=== PATIENT | female | born 1945 | race Caucasian/White ===

== ENCOUNTER → 2016-09-11 | Outpatient (CLI) | payer MEDICARE, OTHER | END | disposition home or self-care (01) | LOC: PCVCCLINIC 13:48 | PROVIDERS: ATTEND Internal Medicine | DX: I25.10 Atherosclerotic heart disease of native coronary artery without angina pectoris (principal); I10 Essential (primary) hypertension; E78.5 Hyperlipidemia, unspecified; Z95.1 Presence of aortocoronary bypass graft | CPT/HCPCS: 80061; 93005; G0463 ==

== ENCOUNTER → 2017-03-05 | Outpatient (CLI) | payer MEDICARE, OTHER | END | disposition home or self-care (01) | LOC: PCVCCLINIC 11:09 | PROVIDERS: ATTEND Internal Medicine | DX: I25.10 Atherosclerotic heart disease of native coronary artery without angina pectoris (principal); I10 Essential (primary) hypertension; I65.23 Occlusion and stenosis of bilateral carotid arteries; E78.5 Hyperlipidemia, unspecified; Z79.899 Other long term (current) drug therapy | CPT/HCPCS: 80061; 93005; G0463 ==

== ENCOUNTER → 2017-09-07 | Outpatient (CLI) | payer MEDICARE, OTHER | END | disposition home or self-care (01) | LOC: PCVCCLINIC 12:04 | DX: I25.10 Atherosclerotic heart disease of native coronary artery without angina pectoris (principal); I10 Essential (primary) hypertension; I65.23 Occlusion and stenosis of bilateral carotid arteries; E78.5 Hyperlipidemia, unspecified; Z79.899 Other long term (current) drug therapy; Z79.82 Long term (current) use of aspirin | CPT/HCPCS: 93005; G0463 ==

== ENCOUNTER → 2018-03-30 | Outpatient (CLI) | payer MEDICARE, OTHER ==
[~2018-03-30] MED LIST: ASPIRIN 325 MG TABLET ONE; HEPARIN for IV BOLUS 10,000 UNIT/10 ML VIAL. ONE; IV NORMAL SALINE 1000ML BAG 1,000 ML ONE
--- NOTE | 2018-03-30 16:04 | PCVCIMAG ---
APPROVED REPORT Study performed: 03/30/2018 10:27:10 Exam: Stress Echocardiogram Indication: CAD s/p CABG,stent Patient Location: Echo lab Stress Nurse: Linda Linares RN Room #: 2 Status: routine Ht: 5 ft 6 in HR: 76 bpm BP: 146/92 mmHg Rhythm: Incomplete RBBB Medical History Medical History: CAD s/p CABG,stent, PAD Cardiac Risk Factors: HTN, Hyperlipidemia Previous Cardiac Procedures: CABG,PCI Exercise History: Physically active Procedure The patient underwent an Exercise Stress Test using the Louis Protocol. Blood pressure, heart rate, and EKG were monitored. An Echocardiogram was performed by commercial tire service technician in four stages in quad fashion. At peak stress, four selected images were obtained and placed side by side with resting images for comparison. Stress Test Details Stress Test: Exercise stress testing was performed using a Louis protocol. HR Resting HR: 76 bpmMax Heart Rate (APMHR): 149 bpm Max HR Achieved: 151 bpmTarget HR (85% APMHR): 126 bpm % of APMHR: 101 Recovery HR: 105 bpm HR response to stress: Normal HR response to stress BP Resting BP: 146/92 mmHg Max BP: 182/86 mmHg Recovery BP: 110/70 mmHg ECG Resting ECG: Incomplete RBBB Stress ECG: Anterolateral injury pattern ST Change: Strongly positive Maximum ST Deviation: 4 mm Arrhythmia: Frequent PVCs,couplets ,short runs PVcs Recovery ECG: Anterolateral W[place] pattern, Anteroseptal [place] pattern Recovery ST Change: Strongly positive Recovery ST Deviation: 4.5 mm Recovery Arrhythmia: Non-sustained ventricular tachycardia, Ventricular fibrillation Clinical Reason for Termination: Maximal effort Stress Symptoms: Leg Fatigue Exercise duration: 8 min 01 sec Highest Stage Achieved: Stage 3: 3.4 mph at 14% grade. Exercise capacity: 10.1 METs Overall Exercise Capacity for Age: Good Scale: Active Angina Score: None Stress ECG Conclusion The patient exercised according to the LOUIS protocol for 8:01 mins; achieving a work level of 10.1 METS. The resting heart rate of 78 bpm varun to a maximum heart rate of 157 bpm. This value represent 105% of the maximal, age-predicted heart rate. The resting blood pressure of 146/92mmHg, varun to a maximum blood pressure of 182/86mmHg. The exercise test was stopped due to fatigue. ST elevation which began as the exercise was stopped continued to progress. Dr San was called to the room. Sublingual nitroglycerin x 2 was given. An IV was started. Abby was called and patient was transported to the hospital. Salcedo Treadmill Score is -12.0 which is High risk. Pre-Stress Echo The resting Echocardiogram showed normal left ventricular contractility with an estimated Ejection Fraction of about 55-60%. Post-Stress Echo The stress Echocardiogram showed abnormal left ventricular contractility with an estimated Ejection Fraction of about 45-50%. The stress Echocardiogram demonstrated wall motion abnormality in the basal anteroseptal, mid-anteroseptal, apical anterior olivarez. Conclusion Clinical Response: Ischemic Exercise Capacity: Average Stress ECG Response: Ischemic Stress Echo Images: Ischemic Positive stress test with acute changes to the EKG and images. Other Information Study Quality: Adequate Critical Notification Physician Notified <Conclusion> Positive stress test with acute changes to the EKG and images.
== END | disposition home or self-care (01) ==
LOC: PCVCIMAG 10:32
PROVIDERS: ATTEND Internal Medicine
DX: I10 Essential (primary) hypertension (principal); I25.10 Atherosclerotic heart disease of native coronary artery without angina pectoris; I65.29 Occlusion and stenosis of unspecified carotid artery; Z95.1 Presence of aortocoronary bypass graft
CPT/HCPCS: 93325; 93351; J1644; J7030

== ENCOUNTER → 2018-04-08 | Outpatient (CLI) | payer MEDICARE, OTHER | END | disposition home or self-care (01) | LOC: PCVCCLINIC 15:07 | PROVIDERS: ATTEND Internal Medicine | DX: I25.10 Atherosclerotic heart disease of native coronary artery without angina pectoris (principal); I25.5 Ischemic cardiomyopathy; I10 Essential (primary) hypertension; I65.23 Occlusion and stenosis of bilateral carotid arteries; E78.5 Hyperlipidemia, unspecified; Z95.1 Presence of aortocoronary bypass graft; Z79.82 Long term (current) use of aspirin | CPT/HCPCS: 93005; G0463 ==

== ENCOUNTER → 2018-05-20 | Outpatient (CLI) | payer MEDICARE, OTHER | END | disposition home or self-care (01) | LOC: PCVCCLINIC 15:25 | PROVIDERS: ATTEND Internal Medicine | DX: I25.10 Atherosclerotic heart disease of native coronary artery without angina pectoris (principal); I10 Essential (primary) hypertension; I25.5 Ischemic cardiomyopathy; I65.23 Occlusion and stenosis of bilateral carotid arteries; E78.5 Hyperlipidemia, unspecified; I25.2 Old myocardial infarction; Z95.1 Presence of aortocoronary bypass graft; Z88.5 Allergy status to narcotic agent; Z88.8 Allergy status to other drugs, medicaments and biological substances; Z88.2 Allergy status to sulfonamides; Z79.82 Long term (current) use of aspirin; Z79.899 Other long term (current) drug therapy; Z90.710 Acquired absence of both cervix and uterus | CPT/HCPCS: 93005; G0463 ==

== ENCOUNTER → 2018-07-22 | Outpatient (CLI) | payer MEDICARE, OTHER ==
--- NOTE | 2018-07-22 14:41 | PCVCIMAG ---
APPROVED REPORT Study performed: 07/22/2018 13:15:44 EXAM: Comprehensive 2D, Doppler, and color-flow Echocardiogram Patient Location: Echo lab Room #: 2Status: routine BSA: 1.80 HR: 70 bpmBP: 140/82 mmHg Rhythm: NSR Other Information Study Quality: Good Risk Factors: Cardiac Risk Factors: Hyperlipidemia, HTN Indications CAD Hypertension/HDD HX CABG, RI 2D Dimensions IVSd: 5.10 (7-11mm)LVOT Diam: 21.78 (18-24mm) LVDd: 46.59 mm PWd: 7.24 (7-11mm)Ascending Ao: 24.53 (22-36mm) LVDs: 27.75 (25-40mm) Left Atrium: 29.07 (27-40mm) Aortic Root: 25.48 mm LV Single Plane 4CH: 51.66 % LV Single Plane 2CH: 61.83 % Biplane EF: 69.0 % Volumes Left Atrial Volume (Systole) Single Plane 4CH: 42.37 mLSingle Plane 2CH: 49.07 mL Biplane LA Volume: 47.00 mLLA ESV Index: 26.00 mL/m2 Aortic Valve AoV Peak Nithin.: 1.05 m/s AO Peak Gr.: 4.86 mmHgLVOT Max P.53 mmHg LVOT Max V: 0.94 m/s NIKKI Vmax: 3.34 cm2 AI Vmax: 1.63 m/s AI [place]: 1.00 m/s2 AI PHT: 473.20 ms Mitral Valve E/A Ratio: 0.6 MV Decel. Time: 167.97 ms MV E Max Nithin.: 0.45 m/s MV A Nithin.: 0.72 m/s IVRT: 110.73 ms Pulmonary Valve PV Peak Nithin.: 0.90 m/sPV Peak Gr.: 3.21 mmHg Tricuspid Valve TR Peak Nithin.: 2.45 m/s TR Peak Gr.: 23.98 mmHg TV Vmax: 0.56 m/sPA Pressure: 30.00 mmHg Left Ventricle The left ventricle is normal size. There is normal LV segmental wall motion. There is normal left ventricular wall thickness. Left ventricular systolic function is normal. The left ventricular ejection fraction is within the normal range. LVEF is 65%. Mild diastolic dysfunction is present (impaired relaxation pattern). Right Ventricle The right ventricle is normal size. The right ventricular systolic function is normal. Atria The left atrium size is normal. The right atrium size is normal. Aortic Valve Aortic valve is trileaflet, mildly sclerotic Mild aortic regurgitation. There is no aortic valvular stenosis. Mitral Valve The mitral valve is normal in structure. Mild mitral regurgitation. No evidence of mitral valve stenosis. Tricuspid Valve The tricuspid valve is normal in structure. Mild to moderate tricuspid regurgitation with a PA pressure of 30. Pulmonic Valve The pulmonary valve is normal in structure. Trace to mild pulmonic regurgitation. Great Vessels The aortic root is normal in size. The ascending aorta is normal in size. Aortic arch is normal in caliber. IVC is normal in size and collapses >50% with inspiration. Pericardium There is no pericardial effusion. There is no pleural effusion. <Conclusion> Left ventricular systolic function is normal. There is normal LV segmental wall motion. LVEF is 65%. Mild diastolic dysfunction Aortic valve is trileaflet, mildly sclerotic. Mild aortic regurgitation. The mitral valve is normal in structure. Mild mitral regurgitation. Mild to moderate tricuspid regurgitation with a pulmonary artery pressure of 30mmHg. There is no pericardial effusion.
== END | disposition home or self-care (01) ==
LOC: PCVCIMAG 13:23
PROVIDERS: ATTEND Internal Medicine
DX: I08.3 Combined rheumatic disorders of mitral, aortic and tricuspid valves (principal); I25.10 Atherosclerotic heart disease of native coronary artery without angina pectoris; I10 Essential (primary) hypertension; E78.5 Hyperlipidemia, unspecified; Z95.1 Presence of aortocoronary bypass graft; Z79.82 Long term (current) use of aspirin
CPT/HCPCS: 36415; 80061; 93306; G0463

== ENCOUNTER → 2018-11-03 | Outpatient (CLI) | payer MEDICARE, OTHER | END | disposition home or self-care (01) | LOC: PCVCCLINIC 13:20 | PROVIDERS: ATTEND Internal Medicine | DX: I25.10 Atherosclerotic heart disease of native coronary artery without angina pectoris (principal); E78.2 Mixed hyperlipidemia; I10 Essential (primary) hypertension; Z95.1 Presence of aortocoronary bypass graft; Z88.6 Allergy status to analgesic agent; Z88.3 Allergy status to other anti-infective agents; Z88.2 Allergy status to sulfonamides; Z91.041 Radiographic dye allergy status | CPT/HCPCS: 93005; G0463 ==

== ENCOUNTER → 2019-01-24 | Outpatient (CLI) | payer MEDICARE, OTHER | END | disposition home or self-care (01) | LOC: PCVCCLINIC 15:22 | PROVIDERS: ATTEND Internal Medicine | DX: I25.10 Atherosclerotic heart disease of native coronary artery without angina pectoris (principal); E78.5 Hyperlipidemia, unspecified; I10 Essential (primary) hypertension; Z95.1 Presence of aortocoronary bypass graft; Z79.82 Long term (current) use of aspirin; Z88.5 Allergy status to narcotic agent | CPT/HCPCS: 36415; 80061; 93005; G0463 ==